=== PATIENT | male | born 1995 | race African-American/Black ===

== ENCOUNTER 2019-03-01 11:52 | Emergency (ER) | payer MEDICAID, OTHER ==
[~2019-03-01] VITALS: Ht 185.4 cm; Wt 123.5 kg
[2019-03-01 13:12] VITALS: BP 137/80
== END 2019-03-01 13:33 | disposition home or self-care (01) ==
LOC: ED 13:04
DX: J20.8 Acute bronchitis due to other specified organisms (principal); B97.89 Other viral agents as the cause of diseases classified elsewhere
CPT/HCPCS: 71046; 99283

== ENCOUNTER 2019-08-30 23:24 | Emergency (ER) | payer MEDICAID, OTHER ==
[~2019-08-30] VITALS: Ht 182.9 cm; Wt 113.0 kg
[2019-08-30] MEDS ORDERED: LIDOCAINE-MPF 1%, 5ML ONE (23:52)
[2019-08-31] MEDS ORDERED: NEOSPORIN OINT. PKT 1 PACKET ONE (00:12)
[2019-08-31 00:17] VITALS: BP 141/88
[2019-08-31] MEDS ORDERED: LIDOCAINE-MPF 1%, 5ML INFIL ONE (00:30)
== END 2019-08-31 00:21 | disposition home or self-care (01) ==
LOC: ED 23:59
DX: L02.414 Cutaneous abscess of left upper limb (principal)
CPT/HCPCS: 10060; 99283